=== PATIENT | male | born 2000 | race Caucasian/White ===

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

== ENCOUNTER → 2021-01-13 | Outpatient (CLI) | payer OTHER, SELFPAY ==
[2021-01-13 19:55] LABS: Probe Check PASS
[2021-01-14 09:47] LABS: Chlamydia Trachomatis by PCR POSITIVE (Negative)
== END | disposition home or self-care (01) ==
PROVIDERS: PCP Family Medicine; Referring Provider Family Medicine; Visit Provider Family Medicine
DX: N34.2 Other urethritis (principal)
CPT/HCPCS: 87491